=== PATIENT | female | born 1985 | race Caucasian/White ===

== ENCOUNTER 2019-08-06 16:43 | Emergency (ER) | payer OTHER ==
[~2019-08-06] VITALS: Ht 157.5 cm; Wt 58.1 kg
--- NOTE | 2019-08-06 17:00 | NUR ---
FIRST CONTACT WITH PT. [facility]. PT SENT FROM WITH REPORT OF 5 POSITIVE TESTS W/IN THE LAST TWO DAYS. REPORTEDLY TOOK THE TESTS BECAUSE "PERIOD IS TWO DAYS LATE- I'M ON DAY 32". PT REPORTS HAVING HAD TUBAL LIGATION FOUR YEARS AGO. DENIES ABD PAIN/VAGINAL BLEEDING OR DC/URINARY SYMPTOMS. FAMILY AT BEDSIDE. AWAITING ORDERS.
--- NOTE | 2019-08-06 18:51 | NUR ---
PT SITTING UP IN [facility]. NAD NOTED. CONTINUES TO DENY PAIN. PT UPDATED TO POC (RESULTS/RECHECK) AND DEMONSTRATES UNDERSTANDING. REPORT TO ANGELO MONACO
--- NOTE | 2019-08-06 19:03 | NUR ---
ROUNDS COMPLETED. ERP AT BEDSIDE. CALL LIGHT IN REACH.
[2019-08-06 19:09] VITALS: BP 105/67
== END 2019-08-06 19:52 | disposition home or self-care (01) ==
LOC: ED 17:37
DX: Z32.01 Encounter for pregnancy test, result positive (principal)
CPT/HCPCS: 36415; 76830; 84702; 99284

== ENCOUNTER 2019-08-22 18:48 | Inpatient (IN) | payer OTHER ==
[~2019-08-22] VITALS: Ht 157.5 cm; Wt 55.0 kg
[2019-08-22 18:53] VITALS: BP 99/73
[2019-08-22] MEDS ORDERED: SODIUM CHLORIDE 0.9% 1,000ML IVBOLUS ONE (19:30)
[2019-08-22] MEDS ORDERED: ONDANSETRON 2MG/ML, 2ML IVPush ONE (19:30)
[2019-08-22] MEDS ORDERED: HYDROmorphone 1 MG/ML, 1ML INJ IVPush PRN (19:30)
[2019-08-22] MEDS ORDERED: SODIUM CHLORIDE FLUSH 10ML SYR IVF ONE (19:30)
[2019-08-22] MEDS ORDERED: PLEASE ENTER ALLERGIES MC SCH (19:30)
[2019-08-22 19:32] LABS: BASOPHILS # (AUTO) 0.02 x10^3/uL (0-0.1); BASOPHILS % (AUTO) 0 % (0-1); EOSINOPHILS # (AUTO) 0.08 x10^3/uL (0-0.4); EOSINOPHILS % (AUTO) 1 % (1-7); LYMPHOCYTES # (AUTO) 1.94 x10^3/uL (1-3.4); LYMPHOCYTES % (AUTO) 31 % (22-44); MD NO; MEAN CORPUSCULAR HEMOGLOBIN 31.2 pg (27.0-34.8); MEAN CORPUSCULAR HGB CONC 33.2 g/dL (32.4-35.8); MONOCYTES # (AUTO) 0.33 x10^3/uL (0.2-0.8); MONOCYTES % (AUTO) 5 % (2-9); NEUTROPHILS % (AUTO) 62 % (42-75); PLATELET COUNT 231 x10^3/uL (130-400); RED BLOOD COUNT 4.08 x10^6/uL (3.82-5.3); RED CELL DISTRIBUTION WIDTH 12.8 % (9.6-15.2)
[2019-08-22 19:43] LABS: ALANINE AMINOTRANSFERASE 20 U/L (12-78); ALBUMIN 3.5 g/dL (3.4-5.0); ANION GAP 7 mmol/L (5-15); CALCIUM 8.7 mg/dL (8.5-10.1); CHLORIDE 109 mmol/L (98-107); CREATININE 0.91 mg/dL (0.55-1.02)
[2019-08-22 20:00] LABS: ALKALINE PHOSPHATASE 68 U/L (45-117); BILIRUBIN,TOTAL 0.2 mg/dL (0.2-1.0); TOTAL PROTEIN 6.9 g/dL (6.4-8.2)
--- NOTE | 2019-08-22 20:06 | NUR ---
PT. 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 PT. STATES SHE HAD A SUDDEN ONSET OF ABD. PAIN AT 6 PM TODAY. PT. HAS HAD A TUBAL LIGATION AND HAS A KNOWN IUP. PER THE PT. SHE HAS BEEN FOLLOWED BY HER CONSTRUCTION REPRESENTATIVE. PT. WAS INSTRUCTED BY HER CONSTRUCTION REPRESENTATIVE TO GO TO THE ED FOR EVALUTION OF HER SUDDEN ONSET ABD. PAIN. PT. DENIES URINARY SYMPTOMS BUT STATES SHE HAD TO HAVE A NEPHROSTOMY TUBE WITH HER LAST BECAUSE SHE HAD AN 11MM KIDNEY STONE. PT.'S LUNGS ARE CTA. MM ARE PINK AND MOIST WITH PULSES +2 THROUGHOUT. PT.' ABD. IS TENDER TO PALPATION. PT. DENIES VAGINAL BLEEDING OR DISCHARGE. PT. IS RESTING WITH THE SIDERAILS UP X 2 AND THE CALL LIGHT IS IN PLACE. REPORT WAS GIVEN TO HUDSON STEPHENS.
--- NOTE | 2019-08-22 20:51 | NUR ---
REPORT TO OR PT TO GO TO SURG NOW FOR AN ETOPIC PREG
[2019-08-22] MEDS ORDERED: SODIUM CHLORIDE 0.9% 1,000 ML IV ONE (20:56)
[2019-08-22] MEDS ORDERED: SODIUM CHLORIDE FLUSH 10ML SYR IVF PRN (21:00)
[2019-08-22] MEDS ORDERED: MIDAZOLAM 1 MG/ML, 2ML ONE (21:07)
[2019-08-22] MEDS ORDERED: FENTANYL PF 250 MCG/5ML ONE (21:07)
[2019-08-22] MEDS ORDERED: PROPOFOL 10 MG/ML, 20ML ONE (21:08)
[2019-08-22] MEDS ORDERED: SUCCINYLCHOLINE 20 MG/ML, 10ML ONE (21:08)
[2019-08-22] MEDS ORDERED: ONDANSETRON 2MG/ML, 2ML ONE (21:09)
[2019-08-22] MEDS ORDERED: DEXAMETHASONE 4 MG/ML, 1ML ONE ×2 (21:09→21:22)
[2019-08-22] MEDS ORDERED: ROCURONIUM 10 MG/ML,10ML ONE (21:22)
[2019-08-22] MEDS ORDERED: ACETAMINOPHEN 325 MG TABLET PO PRN (21:30)
[2019-08-22] MEDS ORDERED: ONDANSETRON 2MG/ML, 2ML IV PRN ×2 (21:30→23:45)
[2019-08-22] MEDS ORDERED: PROMETHAZINE 25 MG/ML, 1ML IV PRN (21:30)
[2019-08-22] MEDS ORDERED: HYDROmorphone 2 MG/ML, 1ML IVPush PRN (21:30)
[2019-08-22] MEDS ORDERED: LABETALOL 5MG/ML, 20ML IV PRN (21:30)
[2019-08-22] MEDS ORDERED: FENTANYL PF 100 MCG/2ML IV PRN (21:30)
[2019-08-22] MEDS ORDERED: MEPERIDINE/PF 25MG/ML,1ML IVPush PRN (21:30)
[2019-08-22] MEDS ORDERED: OXYcodone 5 MG/5 ML ORAL.SOL UDC PO PRN (21:30)
[2019-08-22] MEDS ORDERED: hydrALAzine 20 MG/ML, 1ML IV PRN (21:30)
[2019-08-22] MEDS ORDERED: CEFAZOLIN 1,000 MG ONE (21:34)
[2019-08-22] MEDS ORDERED: BUPIVACAINE/PF-EPI 0.25% 1:200K IM ONE (21:43)
[2019-08-22] MEDS ORDERED: KETOROLAC 30 MG/1 ML ONE (22:03)
[2019-08-22] MEDS ORDERED: SILVER NITRATE STICK TP ONE ×2 (22:26→22:29)
[2019-08-22] MEDS ORDERED: MEPERIDINE/PF 25MG/ML,1ML ONE (22:41)
[2019-08-22] MEDS ORDERED: HYDROmorphone 1 MG/ML, 1ML INJ IV PRN (23:45)
[2019-08-22] MEDS ORDERED: IBUPROFEN 600 MG TABLET PO PRN (23:45)
[2019-08-22] MEDS ORDERED: OXYcodone/APAP 5/325MG TABLET PO PRN (23:45)
[2019-08-23] MEDS ORDERED: OXYC-302 PO (00:13)
[2019-08-23] MEDS ORDERED: IBUP-1223 PO (00:14)
[2019-08-23] MEDS ORDERED: DOCU-131 PO (00:15)
== END 2019-08-23 02:30 | disposition home or self-care (01) | DRG 817 ==
LOC: ED 20:46 → EDIP 20:56 → 4NE 23:24
PROVIDERS: ADMIT Obstetrics & Gynecology; ATTEND Obstetrics & Gynecology
PROC: 10D27ZZ Extraction of Products of Conception, Ectopic, Via Natural or Artificial Opening (ICD-10-PCS; 2019-08-22)
PROC: 3E0234Z Introduction of Serum, Toxoid and Vaccine into Muscle, Percutaneous Approach (ICD-10-PCS; 2019-08-22)
PROC: 0UT74ZZ Resection of Bilateral Fallopian Tubes, Percutaneous Endoscopic Approach (ICD-10-PCS; principal; 2019-08-22 21:30)
DX: O00.00 Abdominal pregnancy without intrauterine pregnancy (principal); K66.1 Hemoperitoneum
CPT/HCPCS: 36415; 76801; 80053; 84702; 85025; 86850; 86900; 88302; 88305; 96372; 99285; G0378; J0690; J1100; J1885; J2250; J2405; J2704; J2790; J3010; J0330; J2175; J7030